=== PATIENT | female | born 1985 | race Caucasian/White ===

== ENCOUNTER 2018-06-01 21:48 | Inpatient (IN) | payer MEDICAID ==
--- NOTE | 2018-06-01 22:36 | HP ---
General Information - Reason for Visit IUP at 39-5/7 with SROM to clear fluid in labor - General Information Maternal Age: 33 Grav: 2 Para: 1 SAB: 0 IEA: 0 Estimated Due Date: 06/03/18 Determined By: LMP Gestational Age in Weeks/Days: 39-5/7 Maternal Blood Type and Rh: O Positive - Results this Serology/RPR Result: Non-Reactive Rubella Result: Non-Immune HBsAg Result: Negative HIV Result: Negative GBS Culture Result: Negative Past Medical History Delivery History: Hx Uncomplicated Vaginal Delivery Delivery History Comment: 12/2015 8lbs 9oz male. Delivered at [facility] [place] [facility] [place] Killian Pertinent Past Medical History: See Records Past Medical History Comment: Eczema Migraine - sees chiropractor for mgmt Pertinent Past Surgical History: See Records Past Surgical History Comment: 10/1999 Pilonidal Cystectomy Pertinent Family History: See Records Family History Comment: Mother: Asthma Father: Thyroid dz, HTN Sister: Asthma and allergies PGM: . Aneurysm PGF: A-fib, HTN MGM: . Aneurysm MGF: . Heart dz, complications from surgery - Antepartal Records Antepartal Records: Reviewed, Complicated by: - Morbid obesity BMI > 42 on entry to care. TWG 30lbs Review of Systems Constitutional: Uncomfortable - with UCs CV Complaint: No Respiratory: Shortness of Breath: No Gastrointestinal: No Nausea/Vomiting, Normal Bowel Movement Genitourinary: Leaking Fluid - since 2100. Clear, No Dysuria, No Bleeding, Spotting - pink tinged fluid Musculoskeletal: No Epigastric Pain, Contractions Neurological: No Headache, No Visual Changes Movement: Normal Exam Allergies/Adverse Reactions: Allergies latex Allergy (Verified 05/31/18 06:25) Rash Vital Signs 06/01/18 22:29 Temperature 98.5 F Pulse Rate 78 Respiratory 19 Rate Blood Pressure 126/71 (mmHg) - Measurements Height: 5 ft 6 in Weight: 286 lb Weight in lbs: 286.883518 Body Mass Index (BMI): 46.1 Pre- Weight: 256 lb Weight Gained This : 30 lbs and 0 ozs - Exam Breast: Breast Exam Deferred CVA: No CVA Tenderness Extremities: Edema - 1+ pitting edema in LE bilaterally Heart: Normal Rhythm/Heart Sounds HEENT: No Significant Findings Lungs: Clear Bilaterally Rectal: Rectal Exam Deferred Reflexes: DTR 2+ Thyroid: No Thyromegaly - Abdominal Exam Abdomen Exam: Non-Tender - Ultrasound/Biophysical Profile Ultrasound Status: Not Done Targeted Exam Findings See L&D Outpatient Visit Provider Note for Findings: N/A Estimated Weight: EFW 7.5-8lbs by Karen (growth sono 36 weeks showed 25 %tile for growth) Cervical Exam: 3cm, 4cm Effacement: 90% Station: -1 Presenting Part: Vertex Membrane Status: SROM Amniotic Fluid Evaluation: Clear Sterile Speculum Exam: Not done Bleeding/Discharge: Bloody Show EFM Findings - External Monitor Findings Baseline Heart Rate: 135 External Monitor Findings: Accelerations Present, No Pattern of Variable or Late Decelerations - isolated early type decel with UC, Variability Moderate , Baseline Stable External Monitor Findings Comment: No evidence of metabolic acidemia Contractions: Regular, Moderate Contraction Frequency: q 4 min Assessment/Plan - Assessment IUP at 39-5/7 in labor No evidence of metabolic acidemia - Obstetrical Risk Factors Obstetrical Risk Factors: Obesity - Plan Plan: Admit - Anticipate Vaginal Delivery Plan Comment: Pt has FOB and female support person at bedside for labor assistance. plan reviewed: pt requests minimal intervention, freedom of movement, freedom to push in position of her choice, intermittent EFM if indicated, declines pain relief in labor at this time. Plan to admit and continue to monitor maternal/ status. Anticipate . - Date/Time of Admission Date of Admission: 06/01/18 Time of Admission: 10:05
--- NOTE | 2018-06-02 00:30 | PN ---
Progress Note - Progress Note Date of Service: 06/02/18 Note: S: Pt requests VE. Describes increased rectal pressure. Denies urge to push. O: BP 126/71 T 97.4 FHT 135bpm by doptones UCs q 3-4 VE: 5-6/100%/vtx 0 station, bulging forebag A: IUP at 38-6/7 in active labor No evidence of metabolic acidemia P: Reassured re: intensity of UCs and increased pressure. Reviewed maternal position changes to help. Continue to monitor.
[2018-06-02] MEDS ORDERED: Glycerin ADULT SUPP PR PRN (03:26)
[2018-06-02] MEDS ORDERED: Witch Hazel PAD* JAR TOPICAL PRN (03:26)
[2018-06-02] MEDS ORDERED: Acetaminophen TAB* 325 MG PO PRN (03:26)
[2018-06-02] MEDS ORDERED: Dibucaine 1% 28.35 GM TUBE PR PRN (03:26)
[2018-06-02] MEDS ORDERED: Lactated Ringers 1000 ML Bag* 1,000 ML IV SCH (04:00)
[2018-06-02] MEDS ORDERED: OXYTOCIN* 10 UNITS/ML 1 ML VIAL IM ONE (05:01)
[2018-06-02] MEDS ORDERED: Misoprostol TAB* 200 MCG PR ONE (06:25)
--- NOTE | 2018-06-02 06:28 | PROCNOTE ---
[facility] OB: Delivery Note - Delivery A Date of : 06/02/18 Time of : 03:13 Sex: Female Weight at : 8 lb 4.63 oz Score 1 Minute: 9 Score 5 Minutes: 9 Gestational Age in Weeks and Days at Delivery: 39 Weeks and 6 Days Delivery Method: Spontaneous Vaginal Labor: Spontaneous Amniotic Fluid: Clear Estimated Blood Loss: 100 Anesthesia/Analgesia: None Delivered By: Tolu Luis - Nursery Level of Nursery: Regular/Bedside - Perineum Perineal Injury: None/Intact - Events Delivery Events of Note: None Apply, Pitocin Only After Delivery - Risk for Falls Delivered OB Patient- Risk for Falls: Heavy Bleeding - pt bled an hour after delivery soaking severla neeraj pads. 300 cc clot expressessed and cytotec given Fall Risk: Patient is at High Risk for Falls
[2018-06-02] MEDS ORDERED: Ammonia Inhalant* 1 EA AMP ONE (08:09)
[2018-06-02] MEDS ORDERED: Simethicone TAB* 80 MG TAB.CHEW PO SCH (08:30)
[2018-06-02] MEDS ORDERED: Measles, Mumps,Rubella VACC* 0.5 ML/VIAL SUBCUT ONE (09:00)
[2018-06-02] MEDS: Docusate CAP* 100 MG PO SCH ×3 (10:25→23:56)
[2018-06-02] MEDS: Ibuprofen TAB* 600 MG PO PRN ×3 (12:37→23:54)
[2018-06-03 07:36] LABS: ABS Basophils 0.1 10^3/ul (0-0.2); ABS Eosinophils 0.2 10^3/ul (0-0.6); ABS Lymphocytes 2.6 10^3/ul (1.0-4.8); ABS Monocytes 0.7 10^3/ul (0-0.8); ABS Neutrophils 6.4 10^3/ul (1.5-7.7); ABS Nucleated RBC 0 10^3/ul; Eosinophil % 2.3 %; Hematocrit 33 % (35-47); Lymphocyte % 26.2 %; Mean Corpuscular HGB Conc 34 g/dl (31-36); Mean Corpuscular Hemoglobin 32 pg (27-31); Mean Corpuscular Volume 93 fL (80-97); Mean Platelet Volume 9.3 fL (7.4-10.4); Nucleated Red Blood Cells % 0; Platelet Count 141 10^3/ul (150-450); Red Blood Count 3.48 10^6/ul (4.00-5.40); Red Cell Distribution Width 13 % (10.5-15); White Blood Count 9.9 10^3/ul (3.5-10.8)
[2018-06-03] MEDS: Ibuprofen TAB* 600 MG PO PRN ×2 (07:44→15:24)
[2018-06-03] MEDS: Docusate CAP* 100 MG PO SCH ×3 (07:45→20:16)
[2018-06-03 07:49] VITALS: BP 124/59
[2018-06-03] MEDS ORDERED: Ferrous Gluconate TAB* 324 MG TAB PO SCH (09:00)
--- NOTE | 2018-06-03 20:22 | PTEDU ---
Patient Name: ELHAM HSU ARACELISELHAM HERNADEZ selected video: Follow Me Mum: [facility] to view on 01/2019 at 8:21:25 [id number]
[2018-06-04] MEDS: Ibuprofen TAB* 600 MG PO PRN ×2 (05:38→13:38)
[2018-06-04] MEDS: Docusate CAP* 100 MG PO SCH ×2 (10:18→13:38)
--- NOTE | 2018-06-04 12:12 | PTEDU ---
Patient Name: ELHAM HSU ARACELISELHAM HERNADEZ selected video: Follow Me Mum: [facility] to view on 02/2019 [facility] 12:11:25 [id number]
== END 2018-06-04 14:22 | disposition home or self-care (01) | DRG 560 ==
LOC: MCHOBOUT 21:48 → MCHOB 22:05
PROVIDERS: ADMIT Midwife; ATTEND Midwife
PROC: 10E0XZZ Delivery of Products of Conception, External Approach (ICD-10-PCS; principal; 2018-06-02)
DX: O99.214 Obesity complicating childbirth (principal); Z37.0 Single live birth; E66.01 Morbid (severe) obesity due to excess calories; O72.2 Delayed and secondary postpartum hemorrhage; Z3A.39 39 weeks gestation of pregnancy
CPT/HCPCS: 36415; 85025; A9270-GY; J2590